=== PATIENT | male | born 1965 | race Caucasian/White ===

== ENCOUNTER 2022-11-03 21:50 | Emergency (ER) | payer OTHER ==
[~2022-11-03] VITALS: Ht 182.9 cm; Wt 102.3 kg
[2022-11-03 21:53] VITALS: BP 119/80; PULSE 98; RESP 14; TEMP 98.6
[2022-11-03] MEDS ORDERED: MELA5TAB40 PO (22:09)
[2022-11-03] MEDS ORDERED: ROSU10TA72 PO (22:09)
[2022-11-03] MEDS ORDERED: TRAZ-257 PO (22:09)
[2022-11-03] MEDS ORDERED: GABA-1181 PO (22:09)
[2022-11-03] MEDS ORDERED: OMEP20 PO (22:09)
[2022-11-03] MEDS ORDERED: RISP1TAB98 PO (22:09)
[2022-11-03] MEDS ORDERED: DOCU-385 PO (22:09)
[2022-11-03] MEDS ORDERED: CLON0.1T2 PO (22:09)
[2022-11-03] MEDS ORDERED: METF-1211 PO (22:09)
[2022-11-03] MEDS ORDERED: MIDO5TAB29 PO (22:09)
[2022-11-03] MEDS ORDERED: ACETAMINOPHEN 500 MG TABLET PO ONE (23:30)
== END 2022-11-04 | disposition home or self-care (01) ==
LOC: EMS 21:51
DX: I10 Essential (primary) hypertension (principal); F31.9 Bipolar disorder, unspecified; H54.40 Blindness, one eye, unspecified eye; Z98.890 Other specified postprocedural states
CPT/HCPCS: 99282; Z7502; Z7610

== ENCOUNTER 2022-12-08 18:52 | Emergency (ER) | payer OTHER ==
[~2022-12-08] VITALS: Ht 177.8 cm; Wt 94.0 kg
[~2022-12-08 18:52] MED LIST: CLON0.1T2 PO; DOCU-385 PO; GABA-1181 PO; MELA5TAB40 PO; METF-1211 PO; MIDO5TAB29 PO; OMEP20 PO; RISP1TAB98 PO; ROSU10TA72 PO; TRAZ-257 PO
[2022-12-08 19:02] VITALS: TEMP 98.3
[2022-12-08 20:56] LABS: BASOPHILS % (AUTO) 0.4 % (0.0-2.0); EOSINOPHILS % (AUTO) 0.9 % (1.0-6.0); HEMATOCRIT 40.8 % (41-53); HEMOGLOBIN 13.8 g/dL (13.5-17.5); LYMPHOCYTES % (AUTO) 17.5 % (22.0-44.0); MEAN CORPUSCULAR HEMOGLOBIN 29.3 pg (26.0-34.0); MEAN CORPUSCULAR HGB CONC 33.9 G/dL (31.0-37.0); MEAN CORPUSCULAR VOLUME 86 fL (80-100); MONOCYTES # (AUTO) 0.9 K/uL (0.1-1.0); MONOCYTES % (AUTO) 8.1 % (2.0-9.0); NEUTROPHILS # (AUTO) 8.4 K/uL (1.8-7.7); NEUTROPHILS % (AUTO) 73.1 % (40.0-70.0); PLATELET COUNT (AUTO) 252 K/uL (150-450); RED BLOOD CELL COUNT(AUTO) 4.72 MIL/uL (4.50-5.90); RED CELL DISTRIBUTION WIDTH 13.3 % (11.5-14.5)
[2022-12-08 21:08] LABS: PROTHROMBIN TIME 10.8 SEC (9.4-11.6)
[2022-12-08 21:12] LABS: CREATININE 1.51 mg/dL (0.60-1.30); POTASSIUM 4.5 mmol/L (3.5-5.1)
[2022-12-08 21:15] LABS: B-TYPE NATRIURETIC PEPTIDE 14 pg/mL (0-100)
[2022-12-08] MEDS ORDERED: ACETAMINOPHEN 500 MG TABLET PO ONE (21:15)
[2022-12-08 21:18] LABS: ALBUMIN 3.7 g/dL (3.4-5.0); BILIRUBIN,TOTAL 0.3 mg/dL (0.1-1.0); TOTAL PROTEIN, SERUM 7.7 g/dL (6.4-8.2)
[2022-12-08 21:26] LABS: CREATINE KINASE, TOTAL ONLY 450 U/L (39-308)
[2022-12-08] MEDS ORDERED: AZITHROMYCIN 500 MG TABLET PO ONE (21:45)
[2022-12-08 22:03] LABS: COVID AG,FIA SOURCE NASOPHARYNGEAL
[2022-12-08 22:33] VITALS: BP 147/105; PULSE 88; RESP 18
[2022-12-08 22:57] LABS: INFLUENZA TYPE A NEGATIVE FOR TYPE A (NEGATIVE); INFLUENZA TYPE B NEGATIVE FOR TYPE B (NEGATIVE)
[2022-12-08 23:24] LABS: APPEARANCE,URINE CLEAR (CLEAR); BILIRUBIN,URINE NEGATIVE (NEGATIVE); GLUCOSE, URINE (UA) TRACE mg/dL (NEGATIVE); KETONES,URINE NEGATIVE (NEGATIVE); LEUKOCYTE ESTERASE ,URINE NEGATIVE (NEGATIVE); NITRATE,URINE NEGATIVE (NEGATIVE); OCCULT BLOOD,URINE NEGATIVE (NEGATIVE); PH,URINE 5.5 (5.0-8.0); PROTEIN,URINE 30-70 mg/dL (NEGATIVE); SPECIFIC GRAVITIY, URINE 1.008 (1.003-1.030); UROBILINOGEN,URINE <=1.0 mg/dL (<=1.0)
[2022-12-08] MEDS ORDERED: AZIT-103 PO (23:26)
== END 2022-12-08 23:50 | disposition home or self-care (01) ==
LOC: EMS 18:53
DX: J18.9 Pneumonia, unspecified organism (principal); R42 Dizziness and giddiness; F31.9 Bipolar disorder, unspecified; I10 Essential (primary) hypertension; H54.40 Blindness, one eye, unspecified eye; Z20.822 Contact with and (suspected) exposure to COVID-19; Z98.890 Other specified postprocedural states
CPT/HCPCS: 99285; 71045; 87426; 80053; 81003; 82550; 83880; 84484; 85025; 85610; 85730; 87804; 36415; 93005; Q9967

== ENCOUNTER 2023-01-29 20:06 | Emergency (ER) | payer OTHER ==
[~2023-01-29] VITALS: Ht 175.3 cm; Wt 86.0 kg
[~2023-01-29 20:06] MED LIST changes: +AZIT-103 PO
[2023-01-29 20:15] VITALS: TEMP 99.2
[2023-01-29 20:59] LABS: COVID AG,FIA SOURCE NASAL SWAB
[2023-01-29 21:20] LABS: INFLUENZA TYPE B NEGATIVE FOR TYPE B (NEGATIVE); SARS-COV2 (COVID) ANTIGEN,FIA Negative (Negative)
[2023-01-29 21:41] LABS: INFLUENZA TYPE A POSITIVE FOR TYPE A (NEGATIVE)
[2023-01-29] MEDS ORDERED: OSEL75 PO (22:38)
[2023-01-29 22:57] VITALS: BP 139/94; PULSE 90; RESP 20
== END 2023-01-29 23:00 | disposition home or self-care (01) ==
LOC: EMS 20:07
DX: J10.1 Influenza due to other identified influenza virus with other respiratory manifestations (principal); F31.9 Bipolar disorder, unspecified; I10 Essential (primary) hypertension; H54.40 Blindness, one eye, unspecified eye; Z98.890 Other specified postprocedural states; Z20.822 Contact with and (suspected) exposure to COVID-19
CPT/HCPCS: 87804; 99283

== ENCOUNTER 2023-12-25 21:34 | Emergency (ER) | payer OTHER ==
[~2023-12-25] VITALS: Ht 175.3 cm; Wt 72.7 kg
[~2023-12-25 21:34] MED LIST changes: -AZIT-103 PO; +AZIT-164 PO; +OSEL75CA45 PO; +RISP-31 PO; -RISP1TAB98 PO
[2023-12-25 21:47] VITALS: TEMP 97.8
[2023-12-25 22:17] LABS: BASOPHILS % (AUTO) 0.6 % (0.0-2.0); EOSINOPHILS % (AUTO) 2.2 % (1.0-6.0); HEMATOCRIT 39.8 % (41-53); HEMOGLOBIN 13.4 g/dL (13.5-17.5); LYMPHOCYTES # (AUTO) 2.1 K/uL (1.0-4.8); LYMPHOCYTES % (AUTO) 24.2 % (22.0-44.0); MEAN CORPUSCULAR HEMOGLOBIN 28.7 pg (26.0-34.0); MEAN CORPUSCULAR HGB CONC 33.6 G/dL (31.0-37.0); MEAN CORPUSCULAR VOLUME 86 fL (80-100); MONOCYTES # (AUTO) 0.8 K/uL (0.1-1.0); MONOCYTES % (AUTO) 9.2 % (2.0-9.0); NEUTROPHILS # (AUTO) 5.6 K/uL (1.8-7.7); NEUTROPHILS % (AUTO) 63.8 % (40.0-70.0); PLATELET COUNT (AUTO) 228 K/uL (150-450); RED BLOOD CELL COUNT(AUTO) 4.65 MIL/uL (4.50-5.90); RED CELL DISTRIBUTION WIDTH 13.4 % (11.5-14.5); WHITE BLOOD COUNT (AUTO) 8.8 K/uL (4.5-11.0)
[2023-12-25 22:25] LABS: ANION GAP 11 mmol/L (8-16); CALCIUM, TOTAL 8.5 mg/dL (8.8-10.5); CARBON DIOXIDE 24 mmol/L (22-29); CHLORIDE 98 mmol/L (98-107); CREATININE 1.63 mg/dL (0.60-1.30); GLOMERULAR FILTR. RATE CALC 44 mL/min (>60); GLUCOSE,RANDOM 353 mg/dL (70-110); POTASSIUM 3.9 mmol/L (3.5-5.1); SODIUM SERUM 133 mmol/L (136-145); UREA NITROGEN, BLOOD 25 mg/dL (7-18)
[2023-12-25 22:33] LABS: ALANINE AMINOTRANSFERASE 24 U/L (12-78); ALBUMIN 3.2 g/dL (3.4-5.0); ALKALINE PHOSPHATASE 72 U/L (46-116); ASPARTATE AMINOTRANSFERASE 23 U/L (15-37); BILIRUBIN,TOTAL 0.2 mg/dL (0.1-1.0); LACTIC ACID 1.3 mmol/L (0.4-2.0); LIPASE 70 U/L (16-77); TROPONIN I-HIGH SENSITIVITY 7 ng/L (<76)
[2023-12-26] MEDS ORDERED: TAMS0.4C94 PO (00:38)
[2023-12-26 00:51] LABS: GLUCOMETER DEV NAME(LOC) ERT.5; GLUCOSE,POINT OF CARE 294 MG/DL (70-110)
[2023-12-26] MEDS: SODIUM CHLORIDE 0.9% 1,000 ML IV ONE (01:53)
[2023-12-26] MEDS: POLYETHYLENE GLYCOL 3350 17 GM PACKET PO ONE (01:53)
[2023-12-26] MEDS: MINERAL OIL 133 ML ENEMA PR ONE (02:31)
[2023-12-26] MEDS: PEG 3350/NA SULF,BICARB,CL/KCL 4000 ML SOLUTION PO ONE (03:40)
[2023-12-26 08:10] VITALS: BP 146/94; PULSE 81; RESP 14; O2SAT 96
== END 2023-12-26 09:55 | disposition home or self-care (01) ==
LOC: EMS 21:34
DX: R73.9 Hyperglycemia, unspecified (principal); K59.00 Constipation, unspecified; F31.9 Bipolar disorder, unspecified; I10 Essential (primary) hypertension; Z98.890 Other specified postprocedural states
CPT/HCPCS: 99284; 80048; 80076; 82962; 83605; 83690; 84484; 85025; 36415; 96360; 74019; 82948; J7030